=== PATIENT | male | born 1990 | race American Indian/Alaskan Native ===

== ENCOUNTER 2016-08-30 13:07 | Emergency (ER) | payer SELFPAY ==
[2016-08-30 18:15] VITALS: BP 132/86
== END 2016-08-30 18:14 | disposition home or self-care (01) ==
LOC: ED 13:07
DX: S01.81XD Laceration without foreign body of other part of head, subsequent encounter (principal); W45.8XXD Other foreign body or object entering through skin, subsequent encounter; Y92.89 Other specified places as the place of occurrence of the external cause; Y99.8 Other external cause status